=== PATIENT | female | born 1940 | race Caucasian/White ===

== ENCOUNTER 2018-08-16 05:41 | Inpatient (IN) ==
--- NOTE | 2018-08-09 09:40 | EKG Report ---
Test Performed on : 08/09/2018 09:35:43 AM Test Reason : PAT Blood Pressure : / mmHG Vent. Rate : 074 BPM Atrial Rate : 312 BPM P-R Int : 000 ms QRS Dur : 082 ms QT Int : 382 ms P-R-T Axes : 000 039 006 degrees QTc Int : 424 ms Atrial fibrillation. Low voltage QRS Nonspecific T wave abnormality Abnormal ECG When compared with ECG of 09-OCT-2017 00:29, T wave inversion no longer evident in Inferior leads T wave inversion no longer evident in Lateral leads Confirmed by Colton FRAZIER, Ronak Lim ([id number]) on 08/09/2018 10:25:04 AM
[2018-08-09 10:20] LABS: URINE SOURCE CLEAN CATCH
[2018-08-09 10:24] LABS: BASO# 0.03 X1000 (0.0-0.2); BASO% 0.4 % (0.0-0.8); EOS# 0.34 X1000 (0.0-0.7); EOS% 4.3 % (0.0-10.0); HEMATOCRIT 41.6 % (37.0-47.0); IMM GRAN# 0.04 X1000 (0.0-0.04); IMM GRAN% 0.5 % (0.0-0.5); LYMPH# 1.81 X1000 (1.2-3.4); LYMPH% 23.1 % (20.5-51.1); MCH 30.1 PG (27-31); MCHC 33.7 g/dL (33-37); MCV 89.5 FL (81-99); MONO# 0.48 X1000 (0.11-0.59); MONO% 6.1 % (1.7-9.3); MPV 11.3 FL (7.4-10.4); NEUT# 5.13 X1000 (1.4-6.5); NEUT% 65.6 % (42.2-75.2); PLT 178 X1000 (130-400); RBC 4.65 XMIL (4.2-5.4); RDW 15.3 % (11.5-14.5); WBC 7.83 X1000 (4.8-10.8)
[2018-08-09 10:34] LABS: BILIRUBIN URINE NEGATIVE (NEGATIVE); BLOOD URINE TRACE (NEGATIVE); COLOR YELLOW; GLUCOSE URINE NEGATIVE (NEGATIVE); INR 2.05; KETONE URINE NEGATIVE (NEGATIVE); LEUKOCYTES URINE NEGATIVE (NEGATIVE); NITRITE URINE NEGATIVE (NEGATIVE); PROTEIN URINE NEGATIVE (NEGATIVE); PROTIME 24.6 Seconds (11.0-16.0); TURBIDITY URINE CLEAR (CLEAR); UR EPITHELIAL CELLS <10 /HPF (<10); URINE BACTERIA NEGATIVE /HPF; URINE RBC <10 /HPF (<10); URINE WBC <10 /HPF (<10); UROBILINOGEN URINE NORMAL (NORMAL)
[2018-08-09 10:35] LABS: PTT 39.3 Seconds (22.3-41.8)
[2018-08-09 11:01] LABS: AGAP 12; BUN 8 mg/dL (8-22); CALCIUM 9.8 mg/dL (8.8-10.2); CHLORIDE 99 mmol/L (98-107); COSMO 281; CREATININE 0.8 mg/dL (0.5-0.9); ESTIMATED GFR > 60; GLUCOSE 158 mg/dL (70-104); POTASSIUM 3.8 mmol/L (3.5-5.1); SODIUM 140 mmol/L (136-145); TCO2 29 mmol/L (25-35)
[2018-08-16] MEDS ORDERED: LYRICA ONE (06:36)
[2018-08-16] MEDS ORDERED: REGLAN ONE (06:36)
[2018-08-16] MEDS ORDERED: CELEBREX ONE (06:36)
[2018-08-16] MEDS ORDERED: PEPCID ONE (06:36)
[2018-08-16] MEDS ORDERED: COLACE ONE (06:36)
[2018-08-16] MEDS ORDERED: KEFZOL 1 GM/D5W 2 GM/100 ML IVPB ONE (06:37)
[2018-08-16] MEDS ORDERED: LR 1,000 ML ONE (06:37)
[2018-08-16] MEDS ORDERED: DIPRIVAN 1% ONE (06:42)
[2018-08-16] MEDS ORDERED: LOPRESSOR PO ONE (06:42)
[2018-08-16] MEDS ORDERED: FENTANYL ONE (06:42)
[2018-08-16] MEDS ORDERED: ZEMURON ONE (06:43)
[2018-08-16] MEDS ORDERED: QUELICIN (DOSE) ONE (06:43)
[2018-08-16] MEDS ORDERED: DECADRON ONE ×2 (06:43→08:33)
[2018-08-16] MEDS ORDERED: ZOFRAN ONE (06:43)
[2018-08-16] MEDS: LANOXIN PO SCH (06:54)
[2018-08-16] MEDS ORDERED: SODIUM CHLORIDE 0.9% ONE (07:03)
[2018-08-16] MEDS ORDERED: NEOSPORIN G.U. IRRIGANT ONE (07:03)
[2018-08-16] MEDS ORDERED: MARCAINE 0.25% PF ONE (07:03)
[2018-08-16] MEDS ORDERED: TORADOL ONE (07:03)
[2018-08-16] MEDS ORDERED: CYKLOKAPRON 1,000 MG/NS 1,000 MG/100 ML IVPB ONE (07:03)
[2018-08-16] MEDS ORDERED: DURAMORPH ONE (07:03)
[2018-08-16] MEDS ORDERED: EXPAREL 1.3% ONE (07:03)
[2018-08-16] MEDS ORDERED: OFIRMEV 1000 MG/ISOTONIC SOLN 1,000 MG/100 ML BOTTLE ONE (08:17)
[2018-08-16] MEDS ORDERED: EPHEDRINE ONE (08:33)
[2018-08-16 08:39] LABS: URINE SOURCE CATH
[2018-08-16 08:51] LABS: BILIRUBIN URINE NEGATIVE (NEGATIVE); BLOOD URINE TRACE (NEGATIVE); COLOR YELLOW; GLUCOSE URINE NEGATIVE (NEGATIVE); KETONE URINE NEGATIVE (NEGATIVE); LEUKOCYTES URINE NEGATIVE (NEGATIVE); NITRITE URINE NEGATIVE (NEGATIVE); PH URINE 5.5; PROTEIN URINE TRACE mg/dL (NEGATIVE); SP GRAVITY URINE 1.032; TURBIDITY URINE CLEAR (CLEAR); UROBILINOGEN URINE NORMAL (NORMAL)
[2018-08-16 08:52] LABS: UR EPITHELIAL CELLS <10 /HPF (<10); URINE BACTERIA NEGATIVE /HPF; URINE RBC <10 /HPF (<10); URINE WBC <10 /HPF (<10)
[2018-08-16] MEDS ORDERED: NS 1,000 ML ONE (09:49)
--- NOTE | 2018-08-16 10:09 | Diag Imaging Result Doc PS360 ---
SHOULDER 1 VIEW RIGHT - 08/16/2018 INDICATION: post op TECHNIQUE: COMPARISON: 10/08/2017 FINDINGS: There has been placement of a total shoulder arthroplasty in good position. No hardware fracture or loosening. Alignment is anatomic. IMPRESSION: No complication. Electronically signed by Eric Bacon 08/16/2018 10:07 AM
[2018-08-16] MEDS: NS 1,000 ML IV SCH (11:00)
[2018-08-16] MEDS ORDERED: OXY IR PO PRN ×2 (12:00)
[2018-08-16] MEDS ORDERED: ZOFRAN PO PRN (12:00)
[2018-08-16] MEDS ORDERED: ANTIVERT PO SCH (13:00)
[2018-08-16 13:40] LABS: INR 1.05; PROTIME 14.5 Seconds (11.0-16.0)
[2018-08-16] MEDS ORDERED: INSULIN PEN NEEDLES ONE (13:44)
[2018-08-16] MEDS ORDERED: CYKLOKAPRON 1,000 MG in NS 100 ML IV ONE (13:45)
[2018-08-16] MEDS: KEFZOL 2 GM/D5W 2 GM/50 ML IVPB IV SCH (15:20)
[2018-08-16] MEDS ORDERED: ANTIVERT PO PRN (16:39)
--- NOTE | 2018-08-16 17:26 | OPERATIVE NOTE ---
PROCEDURE DATE : 08/16/2018 PREOPERATIVE DIAGNOSIS: Right glenohumeral arthritis. POSTOPERATIVE DIAGNOSIS: Right glenohumeral arthritis. PROCEDURE: Right reverse total shoulder arthroplasty with a DePuy Delta Xtend size 10 press-fit stem, a 38+9 humeral cup, 38 eccentric Glenosphere, and a standard Metaglene. SURGEON: Zain Majano MD. EMAIL CAMPAIGN MANAGER: CHRISTIAN Delaney. SECOND PULVERIZER OPERATOR: Leighotn Martinez RN. ANESTHESIA: General. IV FLUIDS: 1500 mL of lactated Ringers. ESTIMATED BLOOD LOSS: 150 mL. COMPLICATIONS: None. INDICATION: The patient is a pleasant female status post injury to her right shoulder in September 2017. The sustained a fracture dislocation with displaced greater tuberosity fracture. The patient underwent closed reduction in the emergency room. She was treated nonoperatively. She has continued with pain, discomfort, and some weakness of the right shoulder. X-rays revealed some posttraumatic arthritic changes, and a recommendation to proceed with a right reverse total shoulder arthroplasty was offered. The risks and benefits of surgery were explained, including anesthesia, , bleeding, infection, failure to relieve pain, postoperative stiffness, nerve injury, blood clots and other imponderables. All questions were answered. The patient and family wished to proceed with surgery. DETAILS OF OPERATION: The patient was taken to the operating room and placed supinely on the operating table. Once adequate anesthesia was obtained, the patient was placed in the semi-Ochoa beach chair position. The right shoulder was subsequently prepped and draped in the usual sterile fashion. A standard deltopectoral incision was made with the skin knife. Medial and lateral skin envelopes were developed. Hemostasis was obtained using electrocautery. The deltopectoral interval was then developed. Retractors were then placed. Attention was turned to the subscapularis tendon, and a #1 Vicryl was placed in the medial aspect of the subscapularis tendon. Approximately 1 cm medial to the subscapularis tendon insertion, it was released. The shoulder was then dislocated anteriorly. A starting reamer was then passed into the intramedullary canal. Sequential reaming was conducted up to a size 10 mm. The intramedullary guide with a proximal humeral cutting block was pinned in position. The humeral head was resected. After this had been performed, a protective disk was then placed. A retractor was then placed. Attention was then turned to the glenoid. Circumferential dissection was performed with a deep knife. A guide was then placed on the glenoid to hong the position for the guide pin. The guide pin was then placed. Reaming was then conducted. The central hole was then dilated. After this was performed, the wound was copiously with antibiotic pulsatile lavage. A standard Metaglene was then impacted in position. Two locking screws were placed, and 1 nonlocking screw. It had good purchase. The wound was copiously irrigated once again. A 38 eccentric Glenosphere was then placed with the eccentricity placed inferiorly. Attention then turned to the proximal humerus, where an intramedullary guide was placed in position, and the proximal humerus was reamed. The wound was copiously irrigated with antibiotic pulsatile lavage. A size 10 Delta Xtend press-fit stem was impacted with autologous impaction of bone grafting. A trial cup was then placed, a 38+9 humeral cup, and appeared to be the correct size. The trial insert was removed. The wound was copiously irrigated. A 38+ 9 humeral cup was then impacted on the stem. The shoulder was reduced and carried through range of motion, with good range of motion and soft tissue balancing. The wound was copiously irrigated once again with antibiotic pulse lavage. Exparel was placed deep to the soft tissue as well as the subcutaneous tissue, and #2 FiberWire was used to repair the subscapularis tendon. The wound was copiously irrigated once again, and 2-0 Vicryl was then used to repair the subcutaneous tissue. The fascia was loosely reapproximated to the deltopectoral interval prior to closing the subcutaneous tissue, and 2-0 Prolene was used to repair the subcutaneous tissue. Benzoin and Steri-Strips were applied. Adaptic, sterile 4 x 4's, ABD pad, and tape were applied to the right shoulder, followed by a shoulder immobilizer. All counts were correct. The patient tolerated the procedure well, and was transferred to the recovery room in stable condition. cc: Zain Majano MD
[2018-08-16] MEDS ORDERED: NEURONTIN PO SCH (21:00)
[2018-08-16] MEDS ORDERED: COUMADIN PO SCH (21:00)
[2018-08-16] MEDS ORDERED: MIRAPEX PO SCH (21:00)
[2018-08-16] MEDS: PERIDEX MT SCH (21:54)
[2018-08-16] MEDS: COLACE PO SCH (21:56)
[2018-08-16] MEDS: LEVEMIR SUBQ SCH (21:57)
--- NOTE | 2018-08-16 22:16 | HISTORY AND PHYSICAL ---
DATE: 08/16/2018 CHIEF COMPLAINT: Right shoulder. HISTORY OF PRESENT ILLNESS: Kelsey Cooper is a 76-year-old female with a past medical history of diabetes type 2, hypertension, stomach ulcers, obstructive sleep apnea, who is status post fall on 10/08/2017 when she sustained a right shoulder fracture with dislocation. She states mainly, she tripped over a dog at that time and fell on her shoulder. She did have a closed reduction at that time at [facility]. She presented to [facility] for follow-up. She did not have surgical intervention at that time. She did undergo therapy and a steroid injection. Unfortunately, she really did not have any improvement and for several months her shoulder has been bothering her. She saw her primary care physician in March and an MRI of the shoulder did show a full-thickness tear of the supraspinatus and infraspinatus. It also showed a superior labral tear. It also showed posttraumatic osteoarthritis of the lateral humeral joint. Because of the longevity of her symptoms, difficulty with daily activities and at rest, she wished to proceed with surgical intervention. The patient has been off her Coumadin and has been cleared by Cardiology for surgery. PAST MEDICAL HISTORY: 1. Diabetes mellitus type 2. 2. Primary essential hypertension. 3. Obstructive sleep apnea. 4. Stomach ulcers. 5. Atrial fibrillation, on anticoagulation. PAST SURGICAL HISTORY: Appendectomy. FAMILY HISTORY: Noncontributory. ALLERGIES: No known drug allergies. SOCIAL HISTORY: She denies tobacco, alcohol, or illicit drug use. REVIEW OF SYSTEMS: A 10 point review of system was completed and negative except for what was listed above in the HPI. CURRENT MEDICATION: Atorvastatin 80 mg p.o. daily, clonidine 0.1 mg p.o. p.r.n. as needed every 8 hours. Clonidine 0.1 mg p.o. Digoxin 250 mcg p.o. daily. Gabapentin 100 mg p.o. daily, Levemir 100 units sliding scale. Metoprolol 50 mg p.o. daily. Meclizine 25 mg p.o. daily, Protonix 40 mg p.o. daily. PHYSICAL EXAMINATION: General: This is a 77-year-old female in no acute distress. HEENT: Head is atraumatic, normocephalic. Pupils are equal, round, reactive to light. CV: She is in atrial fibrillation. Rate is in the 80s. Pulmonary: Breathing is even and nonlabored. Abdomen: Appears nondistended. Extremities: She does have diffuse tenderness to palpation over the right shoulder. She does have a lot of trouble with range of motion. She has very limited range of motion. She does have significant weakness with rotator cuff strength testing. She has pain with terminal range of motion. IMAGING: Previous x-rays of the right shoulder did reveal posttraumatic glenohumeral arthritis as well and an MRI shows a full-thickness supraspinatus tear. IMPRESSION: Posttraumatic right glenohumeral osteoarthritis. PLAN: Right reverse total shoulder arthroplasty. Dr. Majano did discuss surgical intervention with the patient. She has been having pain for about a year at this point. She has tried therapy as well as injections. Her activities of daily living have been greatly affected by her pain. Dr. Majano discussed the risks and benefits of the procedure in great detail. Risks include, but are not limited to, risk of anesthesia, , including infection, failure to relieve pain, posttraumatic stiffness, nerve injury, blood clots, and other imponderables. All questions were answered. We will resume her Coumadin postop day 1. Dictated by CHRISTIAN Delaney for Zain Majano MD cc: CHRISTIAN Delaney MD
[2018-08-17] MEDS ORDERED: GEODON IM ONE (01:49)
[2018-08-17] MEDS ORDERED: STERILE WATER INJ. INJ ONE (01:49)
[2018-08-17] MEDS: KEFZOL 2 GM/D5W 2 GM/50 ML IVPB IV SCH (03:32)
[2018-08-17] MEDS ORDERED: TYLENOL PO PRN (03:41)
[2018-08-17] MEDS ORDERED: KEFZOL IM ONE (06:02)
[2018-08-17] MEDS ORDERED: NORCO-7.5 PO PRN (06:04)
[2018-08-17 06:29] LABS: HEMATOCRIT 35.5 % (37.0-47.0); HEMOGLOBIN 11.8 g/dL (12.0-16.0)
[2018-08-17 06:52] LABS: AGAP 8; BUN 20 mg/dL (8-22); CALCIUM 8.4 mg/dL (8.8-10.2); CHLORIDE 98 mmol/L (98-107); COSMO 273; CREATININE 0.8 mg/dL (0.5-0.9); ESTIMATED GFR > 60; GLUCOSE 173 mg/dL (70-104); POTASSIUM 3.8 mmol/L (3.5-5.1); SODIUM 133 mmol/L (136-145); TCO2 27 mmol/L (25-35)
[2018-08-17] MEDS ORDERED: STERILE WATER INJ. ONE (07:10)
[2018-08-17] MEDS: NS 1,000 ML IV SCH ×2 (08:17→14:18)
[2018-08-17] MEDS ORDERED: LOPRESSOR PO SCH (09:00)
[2018-08-17] MEDS ORDERED: AVAPRO PO SCH (09:00)
[2018-08-17] MEDS ORDERED: LEXAPRO PO SCH (09:00)
[2018-08-17] MEDS ORDERED: MAXZIDE-25 PO SCH (09:00)
[2018-08-17] MEDS ORDERED: LANOXIN PO SCH (09:00)
--- NOTE | 2018-08-17 09:24 | ORTHOPAEDICS PROGRESS NOTE ---
DATE: 08/17/2018 SUBJECTIVE: The patient is a pleasant, 77-year-old female who is 1 day status post right reverse total shoulder arthroplasty. Patient is currently sleeping this morning. I did discuss with the family and discussed with the nurse about her significant confusion last night. She, again, is currently sleeping comfortably. OBJECTIVE: On physical exam, the patient's dressing is intact. She has good capillary refill distally. Her labs are pending. IMPRESSION: Postoperative day #1 status post right reverse shoulder arthroplasty. PLAN: At this point, we will discontinue her OxyIR, given her confusion last evening. We will place her on [place]. We will change her dressing this morning and discontinue her Rmairez. We will plan on discharging home later today if she is doing well. cc: Zain Majano MD
[2018-08-17 11:21] VITALS: BP 114/55
[2018-08-17] MEDS: COLACE PO SCH (13:08)
[2018-08-17] MEDS: LANOXIN PO SCH (13:08)
[2018-08-17] MEDS: PERIDEX MT SCH (13:09)
[2018-08-17] MEDS: LEVEMIR SUBQ SCH (13:09)
== END 2018-08-17 15:20 | disposition home or self-care (01) | DRG 483 ==
LOC: SURHOLD 05:41 → 4N 08:13
PROVIDERS: ADMIT Orthopaedic Surgery Adult Reconstructive Orthopaedic Surgery; ATTEND Orthopaedic Surgery Adult Reconstructive Orthopaedic Surgery
CPT/HCPCS: 73020; 80048; 81001; 82948; 85014; 85018; 85025; 85610; 85730; 86850; 86900; 86901; 88305; 88311; 93005; 93010; 94799; 97163; A9270; C1713; C9290; J0131; J0330; J0690; J1100; J1885; J2274; J2275; J2405; J3010; J3486; J7030; J7120; Q9974; S0020; XXXXX